=== PATIENT | male | born 1950 | race Caucasian/White ===

== ENCOUNTER 2020-05-23 13:22 | Emergency (ER) | payer OTHER ==
[~2020-05-23 13:22] MED LIST: Iopamidol-370 76% 500 ML 1 ML ONE
--- NOTE | 2020-05-23 14:39 | RAD ---
LUMBAR SPINE: 05/23/20 Three views. HISTORY: Low back pain. Lumbar vertebrae maintain height and alignment. Moderately severe degenerative changes. Loss of disc space at L4-5 and L5-S1. Osteophytes in the lumbar vertebrae with posterior facet hypertrophy. Moderately severe degenerative changes. POS: AGW
--- NOTE | 2020-05-23 14:54 | ULT ---
ULTRASOUND ABDOMINAL AORTA: HISTORY: Right lower quadrant pain, back pain, concern for aortic pathology. FINDINGS: The exam is nondiagnostic due to patient's body habitus. The aorta is not visualized. Further evaluation with contrast-enhanced CT scan is recommended. POS: OFF
[2020-05-23 15:29] LABS: Bacteria/HPF None Seen HPF (None Seen); Bilirubin Negative (Negative); Blood, Urine Negative (Negative); Clarity Clear (Clear); Glucose, Urine (Dipstick) 200 mg/dL (Negative); Ketone, Urine Negative (Negative); Leukocyte Negative Leu/uL (Negative); Mucous/LPF 1+ LPF (<2+); Nitrite Negative (Negative); Protein, Urine (Dipstick) 200 mg/dL (Neg-Trace); RBC/HPF 0-3 HPF (0-3); Specific Gravity, Urine 1.027 (1.002-1.036); Squamous Epithelial None Seen HPF (0-3); Urobilinogen Normal mg/dL (Less than 2); WBC/HPF 0-3 HPF (0-3); pH, Urine 5.5 (5.0-9.0)
[2020-05-23 15:36] LABS: #Eosinphils 0.4 thou/uL (0.0-0.7); #Monocytes 0.7 thou/uL (0.11-0.59); #Neutrophils 5.6 thou/uL (1.40-6.50); %Basophils 0.4 % (0.0-1.0); %Monocytes 8.3 % (0.0-10.0); %Neutrophils 63.3 % (42.0-75.0); Hemoglobin 12.9 g/dL (14.0-18.0); Mean Corpuscular HGB CONC 31.2 g/dL (32.0-36.0); Mean Corpuscular Hemoglobin 25.4 pg (27.0-31.0); Mean Corpuscular Volume 81.5 fL (78.0-98.0); Mean Platelet Volume 8.1 fL (7.4-10.4); Platelet Count 190 thou/uL (130-400); RBC Distribution Width 13.6 % (11.5-14.5); Red Blood Cell (RBC) Count 5.08 mill/uL (4.70-6.10); White Blood Cell (WBC) Count 8.9 thou/uL (4.8-10.8)
[2020-05-23 15:57] LABS: ALT (SGPT) 37 U/L (8-55); AST (SGOT) 27 U/L (5-34); Albumin 4.1 g/dL (3.4-4.8); Alkaline Phosphatase 73 U/L (40-110); Anion Gap 14 mmol/L (10-20); BUN (Urea Nitrogen) 28 mg/dL (8.4-25.7); Bilirubin, Total 0.6 mg/dL (0.2-1.2); Calc. Creatinine Clearance 0 mL/min (70-130); Calcium 9.3 mg/dL (7.8-10.44); Carbon Dioxide 26 mmol/L (23-31); Chloride 105 mmol/L (98-107); Estimated GFR-MDRD 56; Globulin 3.1 g/dL (2.4-3.5); Glucose 106 mg/dL (80-115); Potassium 4.1 mmol/L (3.5-5.1); Protein, Total 7.2 g/dL (5.8-8.1); Sodium 141 mmol/L (136-145)
--- NOTE | 2020-05-23 16:55 | CT ---
Exam: CTA chest with 3-D rendering: CTA abdomen with 3-D rendering: HISTORY: Evaluate for aortic etiology regards to back pain. COMPARISON: None TECHNIQUE: CT angiogram of the thoracic and abdominal aorta performed in the axial plane. Three-dimen sional reformatted images are submitted for interpretation. FINDINGS: Chest CT: Mediastinum: No mass, lymphadenopathy or hematoma Heart: Normal heart size. No significant pericardial fluid. Coronary arteries: Minimal atherosclerotic Trachea and central bronchi: Patent Pleural spaces: No pleural effusion. Right lung: Calcified granuloma in the right upper lobe. 0.4 cm nodule in the middle lobe. 0.5 cm martin id nodule in the right lower lobe. Dependent atelectatic changes and scarring the right lower lobe. Left lun.7 cm solid nodule in the lingula. 0.4 cm solid nodule in the left lower lobe. Dependent atelectasis and scarring in the left lower lobe. Pneumothorax: None Abdomen CT: Gallbladder: Cholelithiasis, without evidence of cholecystitis Portal vein: Patent Solid organs: Appropriate arterial phase enhancement of the liver, spleen, pancreas and adrenal gland s. Hypoattenuation of the liver compatible with hepatic steatosis. Kidneys: Symmetric enhancement. No obstructive uropathy. 1.3 cm left renal cortical cyst. Mesentery: No free air or free fluid. There are scattered nonspecific mesenteric lymph nodes. Represe ntative lymph node measures 0.8 x 1.0 cm the left mesentery. There is a retroperitoneal lymphadenopathy. Right common iliac lymph node measures 0.9 x 1.7 cm. Left common iliac lymph node me asures 1.7 x 1.6 cm. Left retroperitoneal soft tissue density measuring 3.8 x 1.7 cm is incompletely evaluated. There is a right lower quadrant mesenteric soft tissue density measuring 1.0 cm. Alimentary canal: Limited evaluation by the lack of oral contrast. No evidence of a bowel obstruction . Normal ileocecal junction. Osseous structures: No lytic or blastic lesions. There is diffuse bone demineralization. CT ANGIOGRAM: No CT evidence for aortic aneurysm or dissection. Scattered atherosclerosis throughout the aorta. Impression: 1. No CT evidence for aortic aneurysm or aortic dissection. 2. Lymphadenopathy in the mesentery as described above. 3. Solid lung parenchymal nodules as described above. Code lung nodule.
== END 2020-05-23 17:30 | disposition home or self-care (01) ==
LOC: ERS 13:22
DX: M54.5 Low back pain (principal); J44.9 Chronic obstructive pulmonary disease, unspecified; E11.9 Type 2 diabetes mellitus without complications; I10 Essential (primary) hypertension
CPT/HCPCS: 71275; 72100; 74174; 76775; 80053; 81003; 81015; 85025; Q9967

== ENCOUNTER 2022-01-09 13:09 | Inpatient (IN) | payer MEDICARE, OTHER ==
[2022-01-09 13:51] LABS: #Eosinphils 0.4 thou/uL (0.0-0.7); #Lymphocytes 1.9 thou/uL (1.20-3.40); #Monocytes 0.9 thou/uL (0.11-0.59); #Neutrophils 6.2 thou/uL (1.40-6.50); %Basophils 0.4 % (0.0-1.0); %Eosinophils 4.3 % (0.0-10.0); %Lymphocytes 19.8 % (21.0-51.0); %Monocytes 9.7 % (0.0-10.0); %Neutrophils 65.8 % (42.0-75.0); Hemoglobin 11.2 g/dL (14.0-18.0); Mean Corpuscular HGB CONC 29.9 g/dL (32.0-36.0); Mean Corpuscular Hemoglobin 22.3 pg (27.0-31.0); Mean Corpuscular Volume 74.6 fL (78.0-98.0); Mean Platelet Volume 9.8 fL (7.4-10.4); Platelet Count 234 thou/uL (130-400); RBC Distribution Width 15.9 % (11.5-14.5); Red Blood Cell (RBC) Count 5.05 mill/uL (4.70-6.10); White Blood Cell (WBC) Count 9.4 thou/uL (4.8-10.8)
[2022-01-09 14:02] LABS: Albumin 3.2 g/dL (3.4-4.8); Anion Gap 12 mmol/L (10-20); BUN (Urea Nitrogen) 21 mg/dL (8.4-25.7); Bilirubin, Total 0.5 mg/dL (0.2-1.2); Calc. Creatinine Clearance 0 mL/min (70-130); Calcium 8.9 mg/dL (7.8-10.44); Carbon Dioxide 26 mmol/L (23-31); Chloride 109 mmol/L (98-107); Estimated GFR 47; Glucose 165 mg/dL (83-110); Potassium 3.6 mmol/L (3.5-5.1); Protein, Total 6.4 g/dL (5.8-8.1); Sodium 143 mmol/L (136-145)
[2022-01-09 14:03] LABS: ALT (SGPT) 28 U/L (8-55); AST (SGOT) 20 U/L (5-34); Alkaline Phosphatase 72 U/L (40-110); Globulin 3.2 g/dL (2.4-3.5)
[2022-01-09] MEDS ORDERED: Pramipexole Di-HCl 1 MG TAB PO SCH (14:15)
[2022-01-09 14:23] LABS: Hypochromia SLIGHT = 6-15 cells (100X) (0-5/hpf); MDiff Complete? YES; Microcytosis SLIGHT = 6-15 cells (100X) (0-5/hpf); Ovalocytes SLIGHT = 2-5 cells (100X) (0-1/hpf); Platelet Morphology Comment Appears Adequate; Polychromasia SLIGHT = 2-3 cells (100X) (0-2/hpf)
[2022-01-09] MEDS ORDERED: Furosemide 40 MG/4 ML VIAL ONE (15:28)
[2022-01-09] MEDS ORDERED: Potassium Chloride 20 MEQ TAB ONE (15:28)
[2022-01-09] MEDS ORDERED: Aspirin Chewable 81 MG TAB ONE (15:28)
[2022-01-09 16:40] LABS: Troponin I 0.047 ng/mL (< 0.028)
[2022-01-09] MEDS ORDERED: Acetaminophen 325 MG TAB PO PRN (19:21)
[2022-01-09 20:10] VITALS: BMI 33.2
[2022-01-09] MEDS ORDERED: Dextrose 50% Abboject 50 ML SYRINGE SLOW IVP PRN (20:12)
[2022-01-09] MEDS ORDERED: Dextrose 5% in Water 1,000 ML IV PRN (20:12)
[2022-01-09] MEDS ORDERED: HumaLOG 300 UNITS/3 ML VIAL SC PRN ×2 (20:12)
[2022-01-09] MEDS: rOPINIRole HCl 1 MG TAB PO SCH (20:18)
[2022-01-09 20:22] LABS: Hemoglobin A1c 7.5 % (4.0-6.0)
[2022-01-09 20:32] LABS: Cardiac Risk 4.2 (Less than 4.5)
[2022-01-09 20:36] LABS: Troponin I 0.036 ng/mL (< 0.028)
[2022-01-09] MEDS ORDERED: Atorvastatin Calcium 10 MG TAB PO SCH (21:00)
[2022-01-09] MEDS ORDERED: Mirtazapine 30 MG TAB PO SCH (21:00)
[2022-01-09] MEDS ORDERED: Furosemide 20 MG/2 ML VIAL SLOW IVP SCH (22:00)
[2022-01-09] MEDS: Melatonin 3 MG TAB PO PRN (22:46)
[2022-01-10 05:04] LABS: Anion Gap 15 mmol/L (10-20); BUN (Urea Nitrogen) 20 mg/dL (8.4-25.7); Calc. Creatinine Clearance 87 mL/min (70-130); Calcium 9.3 mg/dL (7.8-10.44); Carbon Dioxide 27 mmol/L (23-31); Chloride 103 mmol/L (98-107); Estimated GFR 59; Glucose 163 mg/dL (83-110); Potassium 3.7 mmol/L (3.5-5.1); Sodium 141 mmol/L (136-145)
[2022-01-10] MEDS: Furosemide 40 MG/4 ML VIAL SLOW IVP SCH ×2 (05:32→15:13)
[2022-01-10] MEDS ORDERED: Losartan 25 MG TAB PO SCH (09:00)
[2022-01-10] MEDS: Aspirin Chewable 81 MG TAB PO SCH (10:21)
[2022-01-10] MEDS: rOPINIRole HCl 1 MG TAB PO SCH (10:21)
[2022-01-10] MEDS: Cholecalciferol 1,000 UNITS (25 MCG) TAB PO SCH (10:21)
[2022-01-10] MEDS: Enoxaparin Sodium 40 MG/0.4 ML SYRINGE SC SCH (10:22)
[2022-01-10] MEDS ORDERED: Spironolactone 25 MG TAB PO SCH (14:30)
[2022-01-10 14:49] LABS: Iron 34 ug/dL (65-175); Iron Binding Capacity, Total 364 mcg/dL (261-462)
[2022-01-10] MEDS ORDERED: Ferrous Sulfate 325 MG TAB PO SCH (15:45)
[2022-01-10] MEDS ORDERED: Carvedilol 3.125 MG TAB PO SCH (18:33)
[2022-01-10] MEDS: Melatonin 3 MG TAB PO PRN (20:39)
[2022-01-10] MEDS ORDERED: rOPINIRole HCl 0.5 MG TAB PO SCH (21:00)
[2022-01-10] MEDS ORDERED: Atorvastatin Calcium 40 MG TAB PO SCH (21:00)
[2022-01-10] MEDS ORDERED: Mirtazapine 15 MG TAB PO SCH (21:00)
[2022-01-11] MEDS ORDERED: Ketorolac Tromethamine 30 MG/ML VIAL IVP SCH (02:45)
[2022-01-11] MEDS ORDERED: rOPINIRole HCl 2 MG TAB PO SCH (04:00)
[2022-01-11 05:28] LABS: Anion Gap 16 mmol/L (10-20); BUN (Urea Nitrogen) 24 mg/dL (8.4-25.7); Calc. Creatinine Clearance 82 mL/min (70-130); Calcium 9.2 mg/dL (7.8-10.44); Carbon Dioxide 28 mmol/L (23-31); Chloride 99 mmol/L (98-107); Estimated GFR 57; Glucose 151 mg/dL (83-110); Potassium 3.9 mmol/L (3.5-5.1); Sodium 139 mmol/L (136-145)
[2022-01-11] MEDS: Furosemide 40 MG/4 ML VIAL SLOW IVP SCH (06:28)
[2022-01-11] MEDS ORDERED: Spironolactone 25 MG TAB PO SCH ×2 (08:00)
[2022-01-11] MEDS: Cholecalciferol 1,000 UNITS (25 MCG) TAB PO SCH (08:52)
[2022-01-11] MEDS: Enoxaparin Sodium 40 MG/0.4 ML SYRINGE SC SCH (08:53)
[2022-01-11] MEDS: Aspirin Chewable 81 MG TAB PO SCH (08:53)
[2022-01-11] MEDS ORDERED: Empagliflozin 10 MG TAB PO SCH (09:00)
[2022-01-11] MEDS ORDERED: Tamsulosin HCl 0.4 MG CAP PO SCH (09:00)
[2022-01-11 12:23] VITALS: TEMP 97.9
[2022-01-11] MEDS ORDERED: Losartan 25 MG TAB PO SCH (13:15)
[2022-01-11 13:38] VITALS: BP 152/88
[2022-01-12] MEDS ORDERED: Furosemide 40 MG TAB PO SCH (07:30)
[2022-01-12] MEDS ORDERED: Losartan 25 MG TAB PO SCH (09:00)
== END 2022-01-11 15:40 | disposition home or self-care (01) | DRG 291 ==
LOC: ERS 13:09 → 2SW 17:27 → OBSVTOIN 19:21
PROVIDERS: ADMIT Family Medicine; ATTEND Student in an Organized Health Care Education/Training Program
DX: I11.0 Hypertensive heart disease with heart failure (principal); Z66 Do not resuscitate; Z20.822 Contact with and (suspected) exposure to COVID-19; I50.33 Acute on chronic diastolic (congestive) heart failure; N17.9 Acute kidney failure, unspecified; I24.8 Other forms of acute ischemic heart disease; K21.9 Gastro-esophageal reflux disease without esophagitis; E11.9 Type 2 diabetes mellitus without complications; J44.9 Chronic obstructive pulmonary disease, unspecified; G25.81 Restless legs syndrome; Z96.653 Presence of artificial knee joint, bilateral; G47.33 Obstructive sleep apnea (adult) (pediatric); G47.00 Insomnia, unspecified; G89.29 Other chronic pain; M54.9 Dorsalgia, unspecified; D50.9 Iron deficiency anemia, unspecified; I34.0 Nonrheumatic mitral (valve) insufficiency; E66.01 Morbid (severe) obesity due to excess calories; Z68.32 Body mass index [BMI] 32.0-32.9, adult; Z98.890 Other specified postprocedural states; Z79.899 Other long term (current) drug therapy; Z79.84 Long term (current) use of oral hypoglycemic drugs; Z81.1 Family history of alcohol abuse and dependence
CPT/HCPCS: 36415; 36416; 71045; 80048; 80053; 80061; 82553; 82728; 83036; 83540; 83550; 83735; 83880; 84443; 84484; 85025; 93005; 93306; 94640; 96374; G0378; J1650; J1815; J1885; J1940; J7620; U0003; U0005

== ENCOUNTER 2022-04-05 06:31 | Inpatient (IN) | payer OTHER ==
[2022-04-05 07:41] LABS: ALT (SGPT) 32 U/L (8-55); AST (SGOT) 28 U/L (5-34); Albumin 3.5 g/dL (3.4-4.8); Alkaline Phosphatase 72 U/L (40-110); Anion Gap 11 mmol/L (10-20); BUN (Urea Nitrogen) 37 mg/dL (8.4-25.7); Bilirubin, Total 0.6 mg/dL (0.2-1.2); Calc. Creatinine Clearance 0 mL/min (70-130); Calcium 8.7 mg/dL (7.8-10.44); Carbon Dioxide 23 mmol/L (23-31); Chloride 110 mmol/L (98-107); Estimated GFR 47; Globulin 2.9 g/dL (2.4-3.5); Glucose 158 mg/dL (83-110); Potassium 4.2 mmol/L (3.5-5.1); Protein, Total 6.4 g/dL (5.8-8.1); Sodium 140 mmol/L (136-145)
[2022-04-05] MEDS ORDERED: Nitroglycerin 2% Ointment 1 INCH/1 GM Packet ONE (07:55)
[2022-04-05] MEDS ORDERED: Piperacillin/Tazobactam 3.375 GM VIAL ONE (07:56)
[2022-04-05 08:00] LABS: #Eosinphils 0.5 thou/uL (0.0-0.7); #Lymphocytes 1.8 thou/uL (1.20-3.40); #Monocytes 0.7 thou/uL (0.11-0.59); %Basophils 0.4 % (0.0-1.0); %Eosinophils 6.6 % (0.0-10.0); %Lymphocytes 21.8 % (21.0-51.0); %Monocytes 8.7 % (0.0-10.0); %Neutrophils 62.4 % (42.0-75.0); Hemoglobin 12.2 g/dL (14.0-18.0); Mean Corpuscular HGB CONC 29.8 g/dL (32.0-36.0); Mean Corpuscular Hemoglobin 23.7 pg (27.0-31.0); Mean Corpuscular Volume 79.6 fL (78.0-98.0); Mean Platelet Volume 9.3 fL (7.4-10.4); Platelet Count 188 thou/uL (130-400); RBC Distribution Width 16.2 % (11.5-14.5); Red Blood Cell (RBC) Count 5.16 mill/uL (4.70-6.10)
[2022-04-05 08:05] LABS: MDiff Complete? YES; Platelet Morphology Comment Appears Adequate; Polychromasia SLIGHT = 2-3 cells (100X) (0-2/hpf)
[2022-04-05 08:08] LABS: CKMB 15.2 ng/mL (0-6.6)
[2022-04-05] MEDS ORDERED: Enoxaparin Sodium 100 MG/ML SYRINGE ONE (09:08)
[2022-04-05 10:02] LABS: SARS-CoV-2 NAA Rapid Test Not Detected (NotDetected)
[2022-04-05] MEDS ORDERED: Acetaminophen 325 MG TAB PO PRN (10:16)
[2022-04-05] MEDS ORDERED: Iopamidol-370 76% 500 ML 1 ML ONE (10:37)
[2022-04-05] MEDS ORDERED: VANCOMYCIN 2 GRAM/500 ML BAG 2 GM in Premix Bag 1 BAG IVPB SCH (11:00)
[2022-04-05 11:19] LABS: Troponin I 0.029 ng/mL (< 0.028)
[2022-04-05 14:13] LABS: Troponin I 0.041 ng/mL (< 0.028)
[2022-04-05] MEDS ORDERED: Dextrose 5% in Water 1,000 ML IV PRN (14:21)
[2022-04-05] MEDS ORDERED: HumaLOG 300 UNITS/3 ML VIAL SC PRN ×2 (14:21)
[2022-04-05] MEDS ORDERED: Dextrose 50% Abboject 50 ML SYRINGE SLOW IVP PRN (14:21)
[2022-04-05 14:54] LABS: Magnesium 2.2 mg/dL (1.6-2.6)
[2022-04-05] MEDS: Cefepime 1 GM in Sodium Chloride 0.9% 100 ML IVPB SCH (17:44)
[2022-04-05] MEDS: Gabapentin 100 MG CAP PO SCH (20:07)
[2022-04-05] MEDS: Amlodipine 10 MG TAB PO SCH (20:08)
[2022-04-05] MEDS: Atorvastatin Calcium 40 MG TAB PO SCH (20:08)
[2022-04-05] MEDS: Pramipexole Di-HCl 1 MG TAB PO SCH (20:09)
[2022-04-05] MEDS ORDERED: Vancomycin 1 GM in Premix Bag 1 BAG IVPB SCH (21:00)
[2022-04-06] MEDS: Cefepime 1 GM in Sodium Chloride 0.9% 100 ML IVPB SCH (02:16)
[2022-04-06 05:02] LABS: #Eosinphils 0.5 thou/uL (0.0-0.7); #Lymphocytes 1.1 thou/uL (1.20-3.40); #Monocytes 0.7 thou/uL (0.11-0.59); %Basophils 0.4 % (0.0-1.0); %Eosinophils 6.9 % (0.0-10.0); %Lymphocytes 15.1 % (21.0-51.0); %Neutrophils 68.5 % (42.0-75.0); Hemoglobin 11.5 g/dL (14.0-18.0); Mean Corpuscular HGB CONC 30.1 g/dL (32.0-36.0); Mean Corpuscular Hemoglobin 23.9 pg (27.0-31.0); Mean Corpuscular Volume 79.4 fL (78.0-98.0); Mean Platelet Volume 9.9 fL (7.4-10.4); Platelet Count 173 thou/uL (130-400); Red Blood Cell (RBC) Count 4.82 mill/uL (4.70-6.10); White Blood Cell (WBC) Count 7.3 thou/uL (4.8-10.8)
[2022-04-06 05:13] LABS: Anion Gap 11 mmol/L (10-20); BUN (Urea Nitrogen) 25 mg/dL (8.4-25.7); Calc. Creatinine Clearance 96 mL/min (70-130); Calcium 8.9 mg/dL (7.8-10.44); Carbon Dioxide 23 mmol/L (23-31); Chloride 110 mmol/L (98-107); Estimated GFR 64; Glucose 121 mg/dL (83-110); Sodium 140 mmol/L (136-145)
[2022-04-06] MEDS: Clopidogrel Bisulfate 75 MG TAB PO SCH (10:15)
[2022-04-06] MEDS: Aspirin Chewable 81 MG TAB PO SCH (10:15)
[2022-04-06] MEDS: Pramipexole Di-HCl 1 MG TAB PO SCH ×3 (10:16→20:26)
[2022-04-06] MEDS ORDERED: Furosemide 100 MG/10 ML VIAL SLOW IVP SCH (10:30)
[2022-04-06] MEDS ORDERED: Cephalexin 250 MG CAP PO SCH (12:45)
[2022-04-06] MEDS ORDERED: VANCOMYCIN 2 GRAM/500 ML BAG 2 GM in Premix Bag 1 BAG IVPB SCH (13:00)
[2022-04-06] MEDS: Furosemide 40 MG/4 ML VIAL SLOW IVP SCH (14:26)
[2022-04-06] MEDS: Cephalexin 250 MG CAP PO SCH ×2 (18:31→23:31)
[2022-04-06 18:44] VITALS: BMI 32.9
[2022-04-06] MEDS: Gabapentin 100 MG CAP PO SCH (20:26)
[2022-04-06] MEDS: glipiZIDE 10 MG TAB PO SCH (20:26)
[2022-04-06] MEDS: Atorvastatin Calcium 40 MG TAB PO SCH (20:26)
[2022-04-06] MEDS: Amlodipine 10 MG TAB PO SCH (20:26)
[2022-04-07 05:48] LABS: #Eosinphils 0.5 thou/uL (0.0-0.7); #Lymphocytes 1.4 thou/uL (1.20-3.40); #Monocytes 0.7 thou/uL (0.11-0.59); #Neutrophils 4.7 thou/uL (1.40-6.50); %Basophils 0.4 % (0.0-1.0); %Eosinophils 6.6 % (0.0-10.0); %Lymphocytes 19.2 % (21.0-51.0); %Monocytes 9.8 % (0.0-10.0); Hemoglobin 12.6 g/dL (14.0-18.0); Mean Corpuscular HGB CONC 29.5 g/dL (32.0-36.0); Mean Corpuscular Hemoglobin 23.4 pg (27.0-31.0); Mean Corpuscular Volume 79.4 fL (78.0-98.0); Mean Platelet Volume 9.6 fL (7.4-10.4); Platelet Count 194 thou/uL (130-400); RBC Distribution Width 16.1 % (11.5-14.5); White Blood Cell (WBC) Count 7.4 thou/uL (4.8-10.8)
[2022-04-07] MEDS: Cephalexin 250 MG CAP PO SCH ×4 (06:28→23:12)
[2022-04-07] MEDS: Furosemide 40 MG/4 ML VIAL SLOW IVP SCH ×2 (06:29→14:34)
[2022-04-07 07:37] LABS: Anion Gap 12 mmol/L (10-20); BUN (Urea Nitrogen) 20 mg/dL (8.4-25.7); Calc. Creatinine Clearance 94 mL/min (70-130); Calcium 9.6 mg/dL (7.8-10.44); Carbon Dioxide 26 mmol/L (23-31); Chloride 104 mmol/L (98-107); Estimated GFR 67; Glucose 76 mg/dL (83-110); Potassium 3.6 mmol/L (3.5-5.1); Sodium 138 mmol/L (136-145)
[2022-04-07] MEDS ORDERED: Clopidogrel Bisulfate 75 MG TAB PO SCH (09:00)
[2022-04-07] MEDS: Alogliptin 6.25 MG TAB PO SCH (09:49)
[2022-04-07] MEDS: glipiZIDE 10 MG TAB PO SCH ×2 (09:50→20:02)
[2022-04-07] MEDS: Losartan 25 MG TAB PO SCH (09:51)
[2022-04-07] MEDS: Empagliflozin 25 MG TAB PO SCH (09:51)
[2022-04-07] MEDS: Clopidogrel Bisulfate 75 MG TAB PO SCH (09:51)
[2022-04-07] MEDS: Aspirin Chewable 81 MG TAB PO SCH (09:51)
[2022-04-07] MEDS: Pramipexole Di-HCl 1 MG TAB PO SCH ×3 (09:52→20:02)
[2022-04-07] MEDS: Amlodipine 10 MG TAB PO SCH (20:02)
[2022-04-07] MEDS: Gabapentin 100 MG CAP PO SCH (20:02)
[2022-04-07] MEDS: Atorvastatin Calcium 40 MG TAB PO SCH (20:02)
[2022-04-08 05:12] LABS: #Eosinphils 0.4 thou/uL (0.0-0.7); #Lymphocytes 1.6 thou/uL (1.20-3.40); #Monocytes 0.8 thou/uL (0.11-0.59); %Basophils 0.5 % (0.0-1.0); %Eosinophils 5.7 % (0.0-10.0); %Lymphocytes 20.5 % (21.0-51.0); %Monocytes 10.3 % (0.0-10.0); Hemoglobin 13.1 g/dL (14.0-18.0); Mean Corpuscular Hemoglobin 23.7 pg (27.0-31.0); Mean Platelet Volume 9.7 fL (7.4-10.4); Platelet Count 203 thou/uL (130-400); RBC Distribution Width 16.1 % (11.5-14.5); Red Blood Cell (RBC) Count 5.54 mill/uL (4.70-6.10); White Blood Cell (WBC) Count 7.9 thou/uL (4.8-10.8)
[2022-04-08 05:18] LABS: Anion Gap 12 mmol/L (10-20); BUN (Urea Nitrogen) 24 mg/dL (8.4-25.7); Calc. Creatinine Clearance 80 mL/min (70-130); Calcium 9.6 mg/dL (7.8-10.44); Carbon Dioxide 27 mmol/L (23-31); Chloride 104 mmol/L (98-107); Estimated GFR 55; Glucose 171 mg/dL (83-110); Potassium 3.4 mmol/L (3.5-5.1); Sodium 140 mmol/L (136-145)
[2022-04-08] MEDS: Cephalexin 250 MG CAP PO SCH ×2 (06:01→12:41)
[2022-04-08] MEDS: Furosemide 40 MG/4 ML VIAL SLOW IVP SCH (06:01)
[2022-04-08] MEDS: Alogliptin 6.25 MG TAB PO SCH (10:31)
[2022-04-08] MEDS: Aspirin Chewable 81 MG TAB PO SCH (10:32)
[2022-04-08] MEDS: Losartan 25 MG TAB PO SCH (10:33)
[2022-04-08] MEDS: glipiZIDE 10 MG TAB PO SCH (10:33)
[2022-04-08] MEDS: Empagliflozin 25 MG TAB PO SCH (10:33)
[2022-04-08] MEDS: Clopidogrel Bisulfate 75 MG TAB PO SCH (10:33)
[2022-04-08] MEDS: Pramipexole Di-HCl 1 MG TAB PO SCH (10:34)
[2022-04-08 11:28] VITALS: BP 130/70; TEMP 98.1
[2022-04-09] MEDS ORDERED: Furosemide 40 MG TAB PO SCH (07:30)
[2022-04-09] MEDS ORDERED: Tamsulosin HCl 0.4 MG CAP PO SCH (09:00)
== END 2022-04-08 13:20 | disposition home or self-care (01) | DRG 291 ==
LOC: SUATTDRO 06:31 → ERS 06:31 → ERHOLD 10:17 → 2SW 16:40 → OBSVTOIN 04-06 16:52
PROVIDERS: ADMIT Hospitalist; ATTEND Internal Medicine
DX: I11.0 Hypertensive heart disease with heart failure (principal); I50.33 Acute on chronic diastolic (congestive) heart failure; N17.9 Acute kidney failure, unspecified; L03.116 Cellulitis of left lower limb; Z20.822 Contact with and (suspected) exposure to COVID-19; E11.9 Type 2 diabetes mellitus without complications; J44.9 Chronic obstructive pulmonary disease, unspecified; E78.00 Pure hypercholesterolemia, unspecified; M25.462 Effusion, left knee; E66.9 Obesity, unspecified; I25.118 Atherosclerotic heart disease of native coronary artery with other forms of angina pectoris; Z95.5 Presence of coronary angioplasty implant and graft; Z68.31 Body mass index [BMI] 31.0-31.9, adult; Z79.899 Other long term (current) drug therapy; Z79.84 Long term (current) use of oral hypoglycemic drugs
CPT/HCPCS: 36415; 36416; 71045; 71275; 72170; 80048; 80053; 82553; 83735; 83880; 84443; 84484; 85025; 85379; 93005; 93010; 94760; 96372; 96374; 96375; 96376; G0378; J0692; J1650; J1940; J2543; J3370; J3490; J7030; Q9967; U0002

== ENCOUNTER 2022-05-18 06:22 | Emergency (ER) | payer MEDICARE, OTHER ==
[2022-05-18 07:26] LABS: #Eosinphils 0.4 thou/uL (0.0-0.7); #Lymphocytes 2.3 thou/uL (1.20-3.40); #Neutrophils 5.5 thou/uL (1.40-6.50); %Basophils 0.2 % (0.0-1.0); %Eosinophils 4.8 % (0.0-10.0); %Lymphocytes 24.6 % (21.0-51.0); %Monocytes 10.5 % (0.0-10.0); Hemoglobin 12.5 g/dL (14.0-18.0); Mean Corpuscular HGB CONC 30.3 g/dL (32.0-36.0); Mean Corpuscular Hemoglobin 23.7 pg (27.0-31.0); Mean Corpuscular Volume 78.1 fl (78.0-98.0); Mean Platelet Volume 9.4 fL (7.4-10.4); Platelet Count 217 10x3/uL (130-400); RBC Distribution Width 14.9 % (11.5-14.5); Red Blood Cell (RBC) Count 5.26 mill/uL (4.70-6.10); White Blood Cell (WBC) Count 9.1 10x3/uL (4.8-10.8)
[2022-05-18 07:45] LABS: ALT (SGPT) 30 U/L (8-55); AST (SGOT) 20 U/L (5-34); Albumin 3.7 g/dL (3.4-4.8); Alkaline Phosphatase 81 U/L (40-110); Anion Gap 12 mmol/L (10-20); BUN (Urea Nitrogen) 29 mg/dL (8.4-25.7); Bilirubin, Total 0.8 mg/dL (0.2-1.2); Calc. Creatinine Clearance 0 mL/min (70-130); Calcium 9.2 mg/dL (7.8-10.44); Carbon Dioxide 24 mmol/L (23-31); Chloride 108 mmol/L (98-107); Estimated GFR 61; Globulin 2.6 g/dL (2.4-3.5); Glucose 130 mg/dL (83-110); Potassium 4.1 mmol/L (3.5-5.1); Protein, Total 6.3 g/dL (5.8-8.1); Sodium 140 mmol/L (136-145)
[2022-05-18 08:08] LABS: CKMB 5.9 ng/mL (0-6.6)
[2022-05-18] MEDS ORDERED: Nitroglycerin 2% Ointment 1 INCH/1 GM Packet ONE (08:53)
[2022-05-18] MEDS ORDERED: Aspirin Chewable 81 MG TAB ONE (11:51)
== END 2022-05-18 14:37 ==
LOC: ERS 06:22
DX: R53.1 Weakness (principal); I10 Essential (primary) hypertension; K21.9 Gastro-esophageal reflux disease without esophagitis; E11.9 Type 2 diabetes mellitus without complications; Z79.899 Other long term (current) drug therapy
CPT/HCPCS: 36415; 70450; 80053; 82553; 84484; 85025; 93005; 96374

== ENCOUNTER 2022-08-08 20:51 | Inpatient (IN) | payer MEDICARE, OTHER ==
[2022-08-08 21:59] LABS: #Eosinphils 0.1 thou/uL (0.0-0.7); #Lymphocytes 0.7 thou/uL (1.20-3.40); #Monocytes 0.9 thou/uL (0.11-0.59); #Neutrophils 6.9 thou/uL (1.40-6.50); %Basophils 0.4 % (0.0-1.0); %Eosinophils 1.3 % (0.0-10.0); %Lymphocytes 8.4 % (21.0-51.0); %Monocytes 10.7 % (0.0-10.0); %Neutrophils 79.3 % (42.0-75.0); Hemoglobin 11.4 g/dL (14.0-18.0); Mean Corpuscular Hemoglobin 23.8 pg (27.0-31.0); Mean Corpuscular Volume 76.9 fl (78.0-98.0); Mean Platelet Volume 9.9 fL (7.4-10.4); Platelet Count 152 10x3/uL (130-400); RBC Distribution Width 15.2 % (11.5-14.5); White Blood Cell (WBC) Count 8.7 10x3/uL (4.8-10.8)
[2022-08-08] MEDS ORDERED: Ipratropium/Albuterol 3 ML NEB ONE (22:02)
[2022-08-08] MEDS ORDERED: Ketorolac Tromethamine 30 MG/ML VIAL ONE (22:02)
[2022-08-08 22:10] LABS: INR-International Normal Ratio 1.2; PTT 35.5 sec (22.9-36.1); Prothrombin Time 16.1 sec (12.0-14.7)
[2022-08-08 22:11] LABS: D-Dimer Test 2.7 *mcg/mL (0.27-0.43)
[2022-08-08 22:19] LABS: Actual Bicarbonate (HCO3v) 24 mEq/L (22-28); Base Excess -0.2 mEq/L (-2.0 to +3.0); Calcium, Ionized (venous) 1.11 mmol/L (1.16-1.32); Chloride (VBG) 104 mmol/L (98-106); Hemoglobin (Hb) 11.5 g/dL (12.6-17.4); Potassium (VBG) 3.18 mmol/L (3.70-5.30); Sodium 137.6 mmol/L (133-146); pH (venous) 7.44 (7.32-7.43)
[2022-08-08 22:27] LABS: ALT (SGPT) 23 U/L (8-55); AST (SGOT) 26 U/L (5-34); Albumin 3.7 g/dL (3.4-4.8); Alkaline Phosphatase 68 U/L (40-110); Anion Gap 11 mmol/L (10-20); BUN (Urea Nitrogen) 31 mg/dL (8.4-25.7); Bilirubin, Total 1.3 mg/dL (0.2-1.2); Calc. Creatinine Clearance 0 mL/min (70-130); Calcium 8.8 mg/dL (7.8-10.44); Carbon Dioxide 23 mmol/L (23-31); Chloride 107 mmol/L (98-107); Estimated GFR 40; Globulin 2.9 g/dL (2.4-3.5); Potassium 3.2 mmol/L (3.5-5.1); Protein, Total 6.6 g/dL (5.8-8.1); Sodium 138 mmol/L (136-145)
[2022-08-08 22:32] LABS: Glucose 38 mg/dL (83-110)
[2022-08-08] MEDS ORDERED: Magnesium 2 GM/50 ML BAG (IN WATER) ONE (22:44)
[2022-08-08] MEDS ORDERED: Acetaminophen 325 MG TAB ONE (22:44)
[2022-08-08] MEDS ORDERED: cefTRIAXone\\ROCEPHIN 2 GM VIAL ONE (22:44)
[2022-08-08] MEDS ORDERED: methylPREDNISolone Sod Succ/PF 125 MG/2 ML VIAL ONE (22:44)
[2022-08-08 22:47] LABS: CKMB 2.2 ng/mL (0-6.6)
[2022-08-08 23:02] LABS: SARS-CoV-2 NAA Rapid Test DETECTED (NotDetected)
[2022-08-08] MEDS ORDERED: D5 1/2 NS w/20 mEq KCL 1,000 ML IV SCH (23:30)
[2022-08-08] MEDS ORDERED: Acetaminophen 325 MG TAB PO PRN (23:30)
[2022-08-08] MEDS ORDERED: Ondansetron PF 4 MG/2 ML Vial IVP PRN (23:30)
[2022-08-08] MEDS ORDERED: Ondansetron ODT 4 MG TAB SL PRN (23:30)
[2022-08-09] MEDS ORDERED: Aspirin 325 MG TAB ONE (00:15)
[2022-08-09] MEDS ORDERED: Aspirin Chewable 81 MG TAB ONE (00:16)
[2022-08-09 02:12] VITALS: BMI 34.4
[2022-08-09] MEDS ORDERED: Dextrose 5% in Water 1,000 ML IV PRN (02:32)
[2022-08-09] MEDS ORDERED: Dextrose 50% Abboject 50 ML SYRINGE SLOW IVP PRN (02:32)
[2022-08-09] MEDS ORDERED: HumaLOG 300 UNITS/3 ML VIAL SC PRN ×2 (02:32)
[2022-08-09 02:33] LABS: Troponin I 0.049 ng/mL (< 0.028)
[2022-08-09] MEDS ORDERED: Albuterol 200 PUFF (6.7GM INHALER) INH PRN (02:37)
[2022-08-09] MEDS ORDERED: Benzonatate 100 MG CAP PO PRN (02:37)
[2022-08-09] MEDS ORDERED: Acetaminophen 325 MG TAB PO PRN (02:37)
[2022-08-09] MEDS ORDERED: Acetaminophen 650 MG Suppository PR PRN (02:37)
[2022-08-09 04:06] LABS: #Basophils 0.1 thou/uL (0.0-0.2); #Lymphocytes 0.5 thou/uL (1.20-3.40); #Monocytes 0.2 thou/uL (0.11-0.59); %Basophils 0.8 % (0.0-1.0); %Eosinophils 0.2 % (0.0-10.0); %Lymphocytes 6.9 % (21.0-51.0); %Monocytes 2.8 % (0.0-10.0); %Neutrophils 89.3 % (42.0-75.0); Hemoglobin 10.4 g/dL (14.0-18.0); Mean Corpuscular HGB CONC 30.5 g/dL (32.0-36.0); Mean Corpuscular Hemoglobin 23.6 pg (27.0-31.0); Mean Corpuscular Volume 77.4 fl (78.0-98.0); Platelet Count 150 10x3/uL (130-400); RBC Distribution Width 15.3 % (11.5-14.5); Red Blood Cell (RBC) Count 4.42 mill/uL (4.70-6.10); White Blood Cell (WBC) Count 7.8 10x3/uL (4.8-10.8)
[2022-08-09 04:31] LABS: ALT (SGPT) 23 U/L (8-55); AST (SGOT) 26 U/L (5-34)
[2022-08-09 04:31] LABS: Anion Gap 13 mmol/L (10-20); BUN (Urea Nitrogen) 34 mg/dL (8.4-25.7); Calc. Creatinine Clearance 56 mL/min (70-130); Calcium 8.5 mg/dL (7.8-10.44); Carbon Dioxide 22 mmol/L (23-31); Chloride 105 mmol/L (98-107); Estimated GFR 36; Glucose 118 mg/dL (83-110); Potassium 3.3 mmol/L (3.5-5.1); Sodium 137 mmol/L (136-145)
[2022-08-09 04:34] LABS: Troponin I 0.051 ng/mL (< 0.028)
[2022-08-09] MEDS ORDERED: methylPREDNISolone Sod Succ/PF 125 MG/2 ML VIAL IVP SCH (06:00)
[2022-08-09] MEDS ORDERED: Electrolyte Replacement Protocol 1 EACH FS SCH (07:00)
[2022-08-09] MEDS ORDERED: Sodium Chloride 0.9% 1,000 ML IV SCH (07:00)
[2022-08-09 07:36] LABS: Magnesium 2.7 mg/dL (1.6-2.6)
[2022-08-09] MEDS ORDERED: Potassium Chloride 20 MEQ TAB PO SCH (08:00)
[2022-08-09] MEDS ORDERED: Dexamethasone 4 MG TAB PO SCH (08:00)
[2022-08-09] MEDS ORDERED: Pantoprazole 40 MG VIAL IVP SCH (09:00)
[2022-08-09] MEDS ORDERED: Aspirin 325 MG TAB PO SCH (09:00)
[2022-08-09] MEDS ORDERED: methylPREDNISolone Sod Succ 40 MG VIAL IVP SCH (09:00)
[2022-08-09] MEDS ORDERED: Ascorbic Acid 500 mg Chewable Tablet PO SCH (09:00)
[2022-08-09] MEDS ORDERED: REMDESIVIR 200 MG in Sodium Chloride 0.9% 250 ML 210 ML IV SCH (09:00)
[2022-08-09] MEDS: Ascorbic Acid 500 mg Chewable Tablet PO SCH ×2 (09:49→20:35)
[2022-08-09] MEDS: Zinc Sulfate 220 MG CAP PO SCH (09:50)
[2022-08-09] MEDS: Famotidine 20 MG TAB PO SCH (09:56)
[2022-08-09] MEDS: Cholecalciferol (Vitamin D3) 400 UNITS TAB PO SCH (09:56)
[2022-08-09 10:35] LABS: Troponin I 0.032 ng/mL (< 0.028)
[2022-08-09] MEDS: Albuterol 200 PUFF (6.7GM INHALER) INH SCH ×3 (10:35→18:27)
[2022-08-09] MEDS: Mometasone 100 MCG/PUFF (1 INHALER) INH SCH ×2 (10:35→18:26)
[2022-08-09] MEDS: Azithromycin 500 MG in Sodium Chloride 0.9% 250 ML 250 ML IVPB SCH (10:35)
[2022-08-09] MEDS ORDERED: Iopamidol-370 76% 500 ML 1 ML ONE (13:35)
[2022-08-09] MEDS: Melatonin 3 MG TAB PO SCH (23:09)
[2022-08-10] MEDS: Albuterol 200 PUFF (6.7GM INHALER) INH SCH ×4 (01:08→18:28)
[2022-08-10 04:39] LABS: ALT (SGPT) 25 U/L (8-55); AST (SGOT) 23 U/L (5-34)
[2022-08-10 04:41] VITALS: BP 146/84
[2022-08-10] MEDS: Mometasone 100 MCG/PUFF (1 INHALER) INH SCH ×2 (05:20→18:28)
[2022-08-10] MEDS ORDERED: REMDESIVIR 100 MG in Sodium Chloride 0.9% 250 ML 230 ML IV SCH (09:00)
[2022-08-10] MEDS: Ascorbic Acid 500 mg Chewable Tablet PO SCH ×2 (09:19→20:43)
[2022-08-10] MEDS: Azithromycin 500 MG in Sodium Chloride 0.9% 250 ML 250 ML IVPB SCH (09:19)
[2022-08-10] MEDS: Cholecalciferol (Vitamin D3) 400 UNITS TAB PO SCH (09:19)
[2022-08-10] MEDS: Famotidine 20 MG TAB PO SCH (09:19)
[2022-08-10] MEDS: Zinc Sulfate 220 MG CAP PO SCH (09:19)
[2022-08-10 16:28] LABS: #Eosinphils 0.2 thou/uL (0.0-0.7); #Lymphocytes 1.7 thou/uL (1.20-3.40); #Monocytes 0.7 thou/uL (0.11-0.59); #Neutrophils 5.3 thou/uL (1.40-6.50); %Basophils 0.4 % (0.0-1.0); %Eosinophils 2.1 % (0.0-10.0); %Monocytes 9.1 % (0.0-10.0); %Neutrophils 66.5 % (42.0-75.0); Hemoglobin 10.4 g/dL (14.0-18.0); Mean Corpuscular HGB CONC 30.9 g/dL (32.0-36.0); Mean Corpuscular Hemoglobin 24.3 pg (27.0-31.0); Mean Corpuscular Volume 78.6 fl (78.0-98.0); Mean Platelet Volume 9.2 fL (7.4-10.4); Platelet Count 157 10x3/uL (130-400); RBC Distribution Width 15.3 % (11.5-14.5); Red Blood Cell (RBC) Count 4.28 mill/uL (4.70-6.10); White Blood Cell (WBC) Count 7.9 10x3/uL (4.8-10.8)
[2022-08-10 16:50] LABS: Anion Gap 11 mmol/L (10-20); BUN (Urea Nitrogen) 35 mg/dL (8.4-25.7); Calc. Creatinine Clearance 89 mL/min (70-130); Calcium 8.2 mg/dL (7.8-10.44); Carbon Dioxide 22 mmol/L (23-31); Chloride 111 mmol/L (98-107); Estimated GFR 63; Glucose 135 mg/dL (83-110); Potassium 3.9 mmol/L (3.5-5.1); Sodium 140 mmol/L (136-145)
[2022-08-10] MEDS: Melatonin 3 MG TAB PO SCH (20:43)
[2022-08-11] MEDS: Albuterol 200 PUFF (6.7GM INHALER) INH SCH ×2 (02:25→06:14)
[2022-08-11 04:33] LABS: ALT (SGPT) 34 U/L (8-55); AST (SGOT) 32 U/L (5-34)
[2022-08-11] MEDS: Mometasone 100 MCG/PUFF (1 INHALER) INH SCH (06:13)
[2022-08-11 07:52] VITALS: TEMP 98.8
[2022-08-11] MEDS ORDERED: predniSONE 20 MG TAB PO SCH (08:00)
[2022-08-11] MEDS: Famotidine 20 MG TAB PO SCH (09:10)
[2022-08-11] MEDS: Zinc Sulfate 220 MG CAP PO SCH (09:10)
[2022-08-11] MEDS: Ascorbic Acid 500 mg Chewable Tablet PO SCH (09:10)
[2022-08-11] MEDS: Cholecalciferol (Vitamin D3) 400 UNITS TAB PO SCH (09:10)
[2022-08-11] MEDS: Azithromycin 500 MG in Sodium Chloride 0.9% 250 ML 250 ML IVPB SCH (09:13)
[2022-08-12] MEDS ORDERED: FLU VACC QS2022-23(65YR UP)/PF 240 MCG/0.7 ML SYRINGE IM ONE (09:00)
== END 2022-08-11 11:45 | disposition home or self-care (01) | DRG 177 ==
LOC: ERS 20:51 → IMCU/EMU 23:06
PROVIDERS: ADMIT Internal Medicine; ATTEND Internal Medicine
PROC: 5A0935A Assistance with Respiratory Ventilation, Less than 24 Consecutive Hours, High Flow/Velocity Cannula (ICD-10-PCS; principal; 2022-08-08)
PROC: 8E0ZXY6 Isolation (ICD-10-PCS; 2022-08-08)
DX: U07.1 COVID-19 (principal); I21.A1 Myocardial infarction type 2; J96.01 Acute respiratory failure with hypoxia; I50.32 Chronic diastolic (congestive) heart failure; J44.1 Chronic obstructive pulmonary disease with (acute) exacerbation; N17.9 Acute kidney failure, unspecified; I11.0 Hypertensive heart disease with heart failure; E11.9 Type 2 diabetes mellitus without complications; E78.5 Hyperlipidemia, unspecified; E87.6 Hypokalemia; G47.33 Obstructive sleep apnea (adult) (pediatric); R77.8 Other specified abnormalities of plasma proteins; N18.2 Chronic kidney disease, stage 2 (mild); J44.9 Chronic obstructive pulmonary disease, unspecified; I69.322 Dysarthria following cerebral infarction; Z91.018 Allergy to other foods; Z79.899 Other long term (current) drug therapy; Z79.02 Long term (current) use of antithrombotics/antiplatelets; Z79.84 Long term (current) use of oral hypoglycemic drugs; Z98.890 Other specified postprocedural states
CPT/HCPCS: 36415; 36416; 71045; 71275; 80048; 80053; 82553; 82805; 83605; 83735; 83880; 84450; 84460; 84484; 85025; 85379; 85610; 85730; 87040; 93005; 93010; 93306; 96374; 96375; J0456; J0696; J1650; J1815; J1885; J2930; J3475; J3480; J7050; J7512; J7620; Q9967

== ENCOUNTER 2023-01-16 14:26 | Observation (INO) | payer OTHER, MEDICARE ==
[2023-01-16] MEDS ORDERED: Aspirin Chewable 81 MG TAB ONE (15:26)
[2023-01-16] MEDS ORDERED: Ketorolac Tromethamine 30 MG/ML VIAL ONE (15:26)
[2023-01-16 15:37] LABS: #Eosinphils 0.5 thou/uL (0.0-0.7); #Monocytes 0.8 thou/uL (0.11-0.59); #Neutrophils 5.9 thou/uL (1.40-6.50); %Basophils 0.3 % (0.0-1.0); %Eosinophils 5.6 % (0.0-10.0); %Lymphocytes 19.8 % (21.0-51.0); %Monocytes 8.5 % (0.0-10.0); %Neutrophils 65.5 % (42.0-75.0); Hemoglobin 10.9 g/dL (14.0-18.0); Mean Corpuscular HGB CONC 29.6 g/dL (32.0-36.0); Mean Corpuscular Volume 74.2 fl (78.0-98.0); Mean Platelet Volume 9.8 fL (7.4-10.4); Platelet Count 248 10x3/uL (130-400); RBC Distribution Width 17.2 % (11.5-14.5); Red Blood Cell (RBC) Count 4.96 mill/uL (4.70-6.10)
[2023-01-16 15:43] LABS: ALT (SGPT) 25 U/L (8-55); AST (SGOT) 27 U/L (5-34); Albumin 3.7 g/dL (3.4-4.8); Alkaline Phosphatase 68 U/L (40-110); Anion Gap 9 mmol/L (10-20); BUN (Urea Nitrogen) 25 mg/dL (8.4-25.7); Bilirubin, Total 0.4 mg/dL (0.2-1.2); Calc. Creatinine Clearance 0 mL/min (70-130); Calcium 8.8 mg/dL (7.8-10.44); Carbon Dioxide 24 mmol/L (23-31); Chloride 111 mmol/L (98-107); Estimated GFR 51; Glucose 106 mg/dL (83-110); Lipase 55 U/L (8-78); Potassium 3.8 mmol/L (3.5-5.1); Protein, Total 6.7 g/dL (5.8-8.1); Sodium 140 mmol/L (136-145)
[2023-01-16 16:05] LABS: CellaVision Operator ID LAB.KB; Hypochromia SLIGHT = 6-15 cells HPF (0-5); Microcytosis SLIGHT = 6-15 cells HPF (0-5); Ovalocytes SLIGHT = 2-5 cells HPF (0-1); Platelet Adequacy Comment Platelets Normal; Polychromasia SLIGHT = 2-3 cells HPF (0-2); Tear Drops SLIGHT = 2-5 cells HPF (0-1)
[2023-01-16 16:19] LABS: CKMB 11.6 ng/mL (0-6.6)
[2023-01-16] MEDS ORDERED: Albuterol 200 PUFF (6.7GM INHALER) INH PRN (17:29)
[2023-01-16] MEDS ORDERED: HumaLOG 300 UNITS/3 ML VIAL SC PRN (17:34)
[2023-01-16] MEDS ORDERED: Nitroglycerin 0.4 MG TAB (25 Tab Bottle) SL PRN (17:34)
[2023-01-16] MEDS ORDERED: Dextrose 50% Abboject 50 ML SYRINGE SLOW IVP PRN (17:34)
[2023-01-16] MEDS ORDERED: Glucagon 1 MG/ML KIT IM PRN (17:34)
[2023-01-16] MEDS ORDERED: Dextrose 5% in Water 1,000 ML IV PRN (17:34)
[2023-01-16] MEDS ORDERED: Senokot S 8.6-50 MG TAB PO PRN (17:34)
[2023-01-16] MEDS ORDERED: HYDROcodone/Acetaminophen 5/325 mg Tablet PO PRN (17:34)
[2023-01-16] MEDS ORDERED: Ondansetron PF 4 MG/2 ML Vial IVP PRN (17:34)
[2023-01-16] MEDS: Mometasone 200 MCG/PUFF (1 INHALER) INH SCH (19:16)
[2023-01-16 19:29] VITALS: BMI 33.3
[2023-01-16] MEDS: Pramipexole Di-HCl 1 MG TAB PO SCH (19:53)
[2023-01-16] MEDS: Ferrous Sulfate 325 MG TAB PO SCH (19:53)
[2023-01-16] MEDS: Carvedilol 25 MG TAB PO SCH (19:53)
[2023-01-16 20:47] LABS: Troponin I Less than 0.010 ng/mL (< 0.028)
[2023-01-16] MEDS ORDERED: Atorvastatin Calcium 40 MG TAB PO SCH (21:00)
[2023-01-16] MEDS ORDERED: Gabapentin 100 MG CAP PO SCH (21:00)
[2023-01-17 00:35] LABS: Troponin I 0.015 ng/mL (< 0.028)
[2023-01-17 04:46] LABS: #Eosinphils 0.5 thou/uL (0.0-0.7); #Monocytes 0.7 thou/uL (0.11-0.59); #Neutrophils 5.3 thou/uL (1.40-6.50); %Basophils 0.4 % (0.0-1.0); %Eosinophils 5.6 % (0.0-10.0); %Lymphocytes 21.1 % (21.0-51.0); %Monocytes 8.3 % (0.0-10.0); %Neutrophils 64.2 % (42.0-75.0); Hemoglobin 10.5 g/dL (14.0-18.0); Mean Corpuscular HGB CONC 29.5 g/dL (32.0-36.0); Mean Corpuscular Hemoglobin 22.3 pg (27.0-31.0); Mean Corpuscular Volume 75.6 fl (78.0-98.0); Mean Platelet Volume 10.4 fL (7.4-10.4); Platelet Count 240 10x3/uL (130-400); RBC Distribution Width 17.2 % (11.5-14.5); Red Blood Cell (RBC) Count 4.71 mill/uL (4.70-6.10); White Blood Cell (WBC) Count 8.2 10x3/uL (4.8-10.8)
[2023-01-17 05:03] LABS: Hemoglobin A1c 6.2 % (4.0-6.0)
[2023-01-17 05:14] LABS: Anion Gap 13 mmol/L (10-20); BUN (Urea Nitrogen) 27 mg/dL (8.4-25.7); Calc. Creatinine Clearance 85 mL/min (70-130); Calcium 8.6 mg/dL (7.8-10.44); Carbon Dioxide 20 mmol/L (23-31); Cardiac Risk 4.7 (Less than 4.5); Chloride 111 mmol/L (98-107); Cholesterol 112 mg/dl (< 200 Desired); Estimated GFR 58; Glucose 143 mg/dL (83-110); HDL Cholesterol 24 mg/dL (>60 Neg Risk); LDL Cholesterol, Calculated 58 mg/dL; Potassium 3.5 mmol/L (3.5-5.1); Sodium 140 mmol/L (136-145); Triglycerides 152 mg/dL (Less than 150)
[2023-01-17] MEDS: Mometasone 200 MCG/PUFF (1 INHALER) INH SCH (07:22)
[2023-01-17] MEDS ORDERED: Lorazepam 2 MG/ML VIAL SLOW IVP SCH (08:16)
[2023-01-17] MEDS: Carvedilol 25 MG TAB PO SCH (08:20)
[2023-01-17] MEDS: Ferrous Sulfate 325 MG TAB PO SCH (08:21)
[2023-01-17] MEDS: Pramipexole Di-HCl 1 MG TAB PO SCH ×2 (08:21→15:11)
[2023-01-17] MEDS ORDERED: Losartan 25 MG TAB PO SCH (09:00)
[2023-01-17] MEDS ORDERED: Empagliflozin 25 MG TAB PO SCH (09:00)
[2023-01-17] MEDS ORDERED: Aspirin 325 MG TAB PO SCH (09:00)
[2023-01-17] MEDS ORDERED: Furosemide 40 MG TAB PO SCH (09:00)
[2023-01-17] MEDS ORDERED: Clopidogrel Bisulfate 75 MG TAB PO SCH (09:00)
[2023-01-17] MEDS ORDERED: Aspirin 81 mg Enteric Coated Tablet PO SCH (09:00)
[2023-01-17] MEDS ORDERED: Alogliptin 6.25 MG TAB PO SCH (09:00)
[2023-01-17] MEDS ORDERED: Tamsulosin HCl 0.4 MG CAP PO SCH (09:00)
[2023-01-17 11:22] VITALS: BP 153/74; TEMP 97.7
== END 2023-01-17 16:10 | disposition home or self-care (01) ==
LOC: ERS 14:26 → 2SW 18:51
PROVIDERS: ADMIT Internal Medicine Geriatric Medicine; ATTEND Internal Medicine
DX: M25.511 Pain in right shoulder (principal); R77.8 Other specified abnormalities of plasma proteins; I50.30 Unspecified diastolic (congestive) heart failure; J44.9 Chronic obstructive pulmonary disease, unspecified; E78.5 Hyperlipidemia, unspecified; E11.22 Type 2 diabetes mellitus with diabetic chronic kidney disease; D64.9 Anemia, unspecified; I11.0 Hypertensive heart disease with heart failure; Z88.8 Allergy status to other drugs, medicaments and biological substances; Z91.013 Allergy to seafood; Z79.02 Long term (current) use of antithrombotics/antiplatelets; Z79.82 Long term (current) use of aspirin; Z79.899 Other long term (current) drug therapy; Z86.73 Personal history of transient ischemic attack (TIA), and cerebral infarction without residual deficits
CPT/HCPCS: 36415; 36416; 71045; 80048; 80053; 80061; 82553; 83036; 83690; 84484; 85025; 93005; 94760; 96372; 96374; G0378; J1650; J1885; J2060

== ENCOUNTER 2025-01-14 08:26 | Observation (INO) | payer OTHER, MEDICARE ==
[2025-01-14 08:48] LABS: #Basophils 0.05 10x3/uL (0.0-0.2); #Eosinophils 0.35 10x3/uL (0.0-0.7); #Monocytes 0.87 10x3/uL (0.11-0.59); #Neutrophils 5.69 10x3/uL (1.40-6.50); %Basophils 0.6 % (0.0-1.0); %Eosinophils 3.9 % (0.0-10.0); %Lymphocytes 21.4 % (21.0-51.0); %Monocytes 9.8 % (0.0-10.0); %Neutrophils 63.7 % (42.0-75.0); Hematocrit 39.1 % (42.0-52.0); Hemoglobin 12.0 g/dL (14.0-18.0); Mean Corpuscular Hemoglobin 24.1 pg (27.0-31.0); Mean Corpuscular Volume 78.7 fL (78.0-98.0); Platelet Count 206 10x3/uL (130-400); Red Blood Cell (RBC) Count 4.97 mill/uL (4.70-6.10); White Blood Cell (WBC) Count 8.92 10x3/uL (4.8-10.8)
[2025-01-14 09:01] LABS: INR-International Normal Ratio 1.1; Prothrombin Time 14.1 sec (12.0-14.7)
[2025-01-14 09:02] LABS: PTT 47.9 sec (22.9-36.1)
[2025-01-14 09:05] LABS: ALT (SGPT) 32 U/L (Less than 45); AST (SGOT) 29 U/L (11-34); Albumin 3.8 g/dL (3.1-4.5); Alkaline Phosphatase 71 U/L (40-110); Anion Gap 15 mmol/L (10-20); BUN (Urea Nitrogen) 39 mg/dL (8.4-25.7); Bilirubin, Total 0.7 mg/dL (0.3-1.2); Calc. Creatinine Clearance 0 mL/min (70-130); Calcium 8.5 mg/dL (7.8-10.44); Carbon Dioxide 22 mmol/L (23-31); Chloride 110 mmol/L (98-107); Globulin 3.0 g/dL (2.4-3.5); Glucose 153 mg/dL (83-110); Lipase 22 U/L (8-78); Potassium 4.2 mmol/L (3.5-5.1); Sodium 143 mmol/L (136-145)
[2025-01-14 09:09] LABS: Troponin I 0.026 ng/mL (< 0.028)
[2025-01-14] MEDS ORDERED: Bacitracin 1 PK ONE (10:32)
[2025-01-14] MEDS ORDERED: Ketorolac Tromethamine 30 MG (1 mL) VIAL ONE (10:32)
[2025-01-14] MEDS ORDERED: Ondansetron PF 4 MG/2 ML Vial ONE (10:32)
[2025-01-14 10:35] LABS: Actual Bicarbonate (HCO3v) 22.4 mEq/L (22-28); Analyzer IN Cardio ER; Base Excess -3.5 mEq/L (-2.0 to +3.0); Calcium, Ionized (venous) 1.14 mmol/L (1.16-1.32); Chloride (VBG) 105 mmol/L (98-106); Hematocrit-VBG 35 % (42.0-52.0); Hemoglobin (Hb) 12.0 g/dL (12.6-17.4); Potassium (VBG) 3.77 mmol/L (3.70-5.30); Sodium 141 mmol/L (133-146)
[2025-01-14] MEDS ORDERED: Glucagon 1 MG/ML KIT IM PRN (10:45)
[2025-01-14] MEDS ORDERED: Acetaminophen 325 MG TAB PO PRN (10:45)
[2025-01-14] MEDS ORDERED: Dextrose 50% Abboject 50 ML SYRINGE SLOW IVP PRN (10:45)
[2025-01-14] MEDS ORDERED: Ondansetron PF 4 MG/2 ML Vial IVP PRN (10:45)
[2025-01-14 11:04] LABS: Troponin I 0.012 ng/mL (< 0.028)
[2025-01-14] MEDS ORDERED: Iopamidol-370 76% 500 ML MDV (1 ML CHARGE) ONE (14:17)
[2025-01-14 14:36] VITALS: BMI 32.4
[2025-01-14] MEDS: hydrALAZINE 20 MG/ML VIAL SLOW IVP PRN (14:43)
[2025-01-14] MEDS: HYDROcodone/Acetaminophen 5/325 mg Tablet PO PRN (14:43)
[2025-01-14] MEDS: Methocarbamol 500 MG TAB PO PRN (14:44)
[2025-01-14] MEDS: glipiZIDE 10 MG TAB PO SCH (20:04)
[2025-01-14] MEDS: Carvedilol 25 MG TAB PO SCH (20:04)
[2025-01-14] MEDS: NIFEdipine XL 60 MG ER.TAB PO SCH (20:04)
[2025-01-14] MEDS: Transdermal Patch Removal LIDOCAINE TOP SCH (20:28)
[2025-01-15 04:39] LABS: #Basophils 0.03 10x3/uL (0.0-0.2); #Eosinophils 0.32 10x3/uL (0.0-0.7); #Monocytes 1.07 10x3/uL (0.11-0.59); #Neutrophils 7.27 10x3/uL (1.40-6.50); %Basophils 0.3 % (0.0-1.0); %Eosinophils 3.2 % (0.0-10.0); %Lymphocytes 13.7 % (21.0-51.0); %Monocytes 10.6 % (0.0-10.0); %Neutrophils 71.8 % (42.0-75.0); Hematocrit 37.5 % (42.0-52.0); Hemoglobin 11.0 g/dL (14.0-18.0); Mean Corpuscular Hemoglobin 23.8 pg (27.0-31.0); Mean Corpuscular Volume 81.2 fL (78.0-98.0); Platelet Count 196 10x3/uL (130-400); Red Blood Cell (RBC) Count 4.62 mill/uL (4.70-6.10); White Blood Cell (WBC) Count 10.12 10x3/uL (4.8-10.8)
[2025-01-15 05:27] LABS: Anion Gap 12 mmol/L (10-20); BUN (Urea Nitrogen) 30 mg/dL (8.4-25.7); Calc. Creatinine Clearance 61 mL/min (70-130); Calcium 8.4 mg/dL (7.8-10.44); Carbon Dioxide 26 mmol/L (23-31); Chloride 108 mmol/L (98-107); Glucose 71 mg/dL (83-110); Potassium 4.2 mmol/L (3.5-5.1); Sodium 142 mmol/L (136-145)
[2025-01-15] MEDS: Furosemide 40 MG (4 mL) VIAL SLOW IVP SCH (05:55)
[2025-01-15] MEDS: Losartan 25 MG TAB PO SCH (10:27)
[2025-01-15 10:32] VITALS: TEMP 98.6
[2025-01-15] MEDS ORDERED: Iopamidol 370 76% 100 ML VIAL ONE (14:36)
[2025-01-15 16:51] VITALS: BP 162/74
== END 2025-01-15 18:56 ==
LOC: ERS 08:26 → OBS 10:51
PROVIDERS: ADMIT Surgery; ATTEND Surgery
DX: S20.219A Contusion of unspecified front wall of thorax, initial encounter (principal); R55 Syncope and collapse; J44.9 Chronic obstructive pulmonary disease, unspecified; G47.33 Obstructive sleep apnea (adult) (pediatric); I25.10 Atherosclerotic heart disease of native coronary artery without angina pectoris; E11.22 Type 2 diabetes mellitus with diabetic chronic kidney disease; I12.9 Hypertensive chronic kidney disease with stage 1 through stage 4 chronic kidney disease, or unspecified chronic kidney disease; N18.32 Chronic kidney disease, stage 3b; E78.5 Hyperlipidemia, unspecified; Z87.891 Personal history of nicotine dependence; Z91.013 Allergy to seafood; Z88.8 Allergy status to other drugs, medicaments and biological substances; Z79.82 Long term (current) use of aspirin; Z79.899 Other long term (current) drug therapy; V89.2XXA Person injured in unspecified motor-vehicle accident, traffic, initial encounter
CPT/HCPCS: 70450; 71260; 71275; 72125; 73080; 73130 ×2; 73552; 73564; 74174; 74177; 80048; 80053; 82805; 82962 ×2; 83690; 84484 ×2; 85025 ×2; 85610; 85730; 86850; 86900; 86901; 93005; 93880; 96361; 96374; 96375 ×3; 96376; 97116; 99285; G0378 ×3; G0390; J0360; J1885; J1940; J2270; J2405; Q9967 ×2; 36415; 36416

== ENCOUNTER 2025-04-11 10:01 | Emergency (ER) | payer MEDICARE ==
[2025-04-11 10:30] LABS: #Basophils 0.03 10x3/uL (0.0-0.2); #Eosinophils 0.60 10x3/uL (0.0-0.7); #Monocytes 0.78 10x3/uL (0.11-0.59); #Neutrophils 5.51 10x3/uL (1.40-6.50); %Basophils 0.4 % (0.0-1.0); %Eosinophils 7.3 % (0.0-10.0); %Lymphocytes 15.7 % (21.0-51.0); %Monocytes 9.5 % (0.0-10.0); %Neutrophils 66.7 % (42.0-75.0); Hematocrit 37.8 % (42.0-52.0); Hemoglobin 10.9 g/dL (14.0-18.0); Mean Corpuscular Hemoglobin 22.5 pg (27.0-31.0); Mean Corpuscular Volume 77.9 fL (78.0-98.0); Platelet Count 214 10x3/uL (130-400); Red Blood Cell (RBC) Count 4.85 mill/uL (4.70-6.10); White Blood Cell (WBC) Count 8.24 10x3/uL (4.8-10.8)
[2025-04-11 10:51] LABS: ALT (SGPT) 18 U/L (Less than 45); AST (SGOT) 19 U/L (11-34); Albumin 3.5 g/dL (3.1-4.5); Alkaline Phosphatase 83 U/L (40-110); Anion Gap 11 mmol/L (10-20); BUN (Urea Nitrogen) 40 mg/dL (8.4-25.7); Bilirubin, Total 0.5 mg/dL (0.3-1.2); Calc. Creatinine Clearance 0 mL/min (70-130); Calcium 8.7 mg/dL (7.8-10.44); Carbon Dioxide 26 mmol/L (23-31); Chloride 109 mmol/L (98-107); Globulin 3.5 g/dL (2.4-3.5); Glucose 105 mg/dL (83-110); Potassium 4.4 mmol/L (3.5-5.1); Sodium 142 mmol/L (136-145)
[2025-04-11 11:14] LABS: Anisocytosis SLIGHT = 6-15 cells HPF (0-5); Microcytosis SLIGHT = 6-15 cells HPF (0-5); Platelet Adequacy Comment Platelets Normal; Polychromasia SLIGHT = 2-3 cells HPF (0-2)
[2025-04-11] MEDS ORDERED: Acetaminophen 500 MG TAB ONE (12:10)
== END 2025-04-11 15:54 | disposition home or self-care (01) ==
LOC: ERS 10:01 → SUATTDRO 10:01 → ERS 15:54
PROVIDERS: ATTEND Family Medicine
DX: R60.9 Edema, unspecified (principal); R79.89 Other specified abnormal findings of blood chemistry; E11.9 Type 2 diabetes mellitus without complications; J44.9 Chronic obstructive pulmonary disease, unspecified; I11.0 Hypertensive heart disease with heart failure; I50.9 Heart failure, unspecified; Z79.82 Long term (current) use of aspirin; Z79.899 Other long term (current) drug therapy
CPT/HCPCS: 71045; 74176; 80053; 83605; 83880; 85025; J2270; 96374

== ENCOUNTER 2025-04-28 02:06 | Inpatient (IN) | payer MEDICARE, OTHER, SELFPAY ==
[2025-04-28] MEDS ORDERED: Acetaminophen 500 MG TAB ONE (02:26)
[2025-04-28] MEDS ORDERED: Albuterol 2.5 MG (3 mL) NEB ONE (02:27)
[2025-04-28 02:33] LABS: #Basophils 0.04 10x3/uL (0.0-0.2); #Eosinophils 0.56 10x3/uL (0.0-0.7); #Monocytes 1.22 10x3/uL (0.11-0.59); #Neutrophils 8.20 10x3/uL (1.40-6.50); %Basophils 0.4 % (0.0-1.0); %Eosinophils 5.0 % (0.0-10.0); %Lymphocytes 10.0 % (21.0-51.0); %Monocytes 10.9 % (0.0-10.0); %Neutrophils 73.3 % (42.0-75.0); Hematocrit 34.6 % (42.0-52.0); Hemoglobin 10.0 g/dL (14.0-18.0); Mean Corpuscular Hemoglobin 22.6 pg (27.0-31.0); Mean Corpuscular Volume 78.1 fL (78.0-98.0); Platelet Count 215 10x3/uL (130-400); Red Blood Cell (RBC) Count 4.43 mill/uL (4.70-6.10); White Blood Cell (WBC) Count 11.18 10x3/uL (4.8-10.8)
[2025-04-28 02:48] LABS: ALT (SGPT) 22 U/L (Less than 45); AST (SGOT) 27 U/L (11-34); Albumin 3.5 g/dL (3.1-4.5); Alkaline Phosphatase 71 U/L (40-110); Anion Gap 13 mmol/L (10-20); BUN (Urea Nitrogen) 42 mg/dL (8.4-25.7); Bilirubin, Total 0.7 mg/dL (0.3-1.2); Calc. Creatinine Clearance 0 mL/min (70-130); Calcium 8.6 mg/dL (7.8-10.44); Carbon Dioxide 24 mmol/L (23-31); Chloride 109 mmol/L (98-107); Globulin 3.4 g/dL (2.4-3.5); Glucose 135 mg/dL (83-110); Potassium 4.7 mmol/L (3.5-5.1); Sodium 141 mmol/L (136-145)
[2025-04-28 03:38] LABS: Actual Bicarbonate (HCO3v) 23.9 mEq/L (22-28); Analyzer IN Cardio ER; Base Excess -2.5 mEq/L (-2.0 to +3.0); Calcium, Ionized (venous) 1.13 mmol/L (1.16-1.32); Chloride (VBG) 106 mmol/L (98-106); Hematocrit-VBG 33 % (42.0-52.0); Hemoglobin (Hb) 11.1 g/dL (12.6-17.4); Potassium (VBG) 4.10 mmol/L (3.70-5.30); Sodium 139 mmol/L (133-146)
[2025-04-28] MEDS ORDERED: Furosemide 40 MG (4 mL) VIAL ONE (04:39)
[2025-04-28] MEDS ORDERED: cefTRIAXone (ROCEPHIN) 2 GM VIAL ONE (04:39)
[2025-04-28] MEDS ORDERED: Glucagon 1 MG/ML KIT IM PRN (04:44)
[2025-04-28] MEDS ORDERED: Dextrose 50% Abboject 50 ML SYRINGE SLOW IVP PRN (04:44)
[2025-04-28] MEDS ORDERED: Azithromycin 500 MG VIAL ONE (05:24)
[2025-04-28] MEDS: Furosemide 40 MG (4 mL) VIAL SLOW IVP SCH (05:37)
[2025-04-28] MEDS ORDERED: Carvedilol 25 MG TAB ONE (08:07)
[2025-04-28] MEDS ORDERED: Aspirin Chewable 81 MG TAB ONE (08:07)
[2025-04-28] MEDS: Aspirin Chewable 81 MG TAB PO SCH (08:17)
[2025-04-28] MEDS: Carvedilol 25 MG TAB PO SCH (08:17)
[2025-04-28] MEDS: NIFEdipine XL 60 MG ER.TAB PO SCH (08:17)
[2025-04-28 10:14] VITALS: BMI 33.0
[2025-04-28] MEDS ORDERED: Iopamidol 370 76% 100 ML VIAL ONE (11:05)
[2025-04-28] MEDS: Acetaminophen 325 MG TAB PO PRN (21:18)
[2025-04-28] MEDS: QUEtiapine 25 MG TAB PO SCH (21:18)
[2025-04-28] MEDS: Methocarbamol 500 MG TAB PO PRN (21:18)
[2025-04-29] MEDS: cefTRIAXone\\ROCEPHIN 1 GM in Sodium Chloride 0.9% 100 ML IVPB SCH (06:15)
[2025-04-29 06:25] LABS: #Basophils Less than 0.03 10x3/uL (0.0-0.2); #Eosinophils Less than 0.03 10x3/uL (0.0-0.7); #Monocytes 0.48 10x3/uL (0.11-0.59); #Neutrophils 8.07 10x3/uL (1.40-6.50); %Basophils 0.0 % (0.0-1.0); %Eosinophils 0.0 % (0.0-10.0); %Lymphocytes 9.1 % (21.0-51.0); %Monocytes 5.1 % (0.0-10.0); %Neutrophils 84.9 % (42.0-75.0); Hematocrit 34.4 % (42.0-52.0); Hemoglobin 10.0 g/dL (14.0-18.0); Mean Corpuscular Hemoglobin 22.4 pg (27.0-31.0); Mean Corpuscular Volume 77.0 fL (78.0-98.0); Platelet Count 231 10x3/uL (130-400); Red Blood Cell (RBC) Count 4.47 mill/uL (4.70-6.10); White Blood Cell (WBC) Count 9.50 10x3/uL (4.8-10.8)
[2025-04-29 06:47] LABS: ALT (SGPT) 19 U/L (Less than 45); AST (SGOT) 19 U/L (11-34); Albumin 3.3 g/dL (3.1-4.5); Alkaline Phosphatase 68 U/L (40-110); Anion Gap 12 mmol/L (10-20); BUN (Urea Nitrogen) 47 mg/dL (8.4-25.7); Bilirubin, Total 0.4 mg/dL (0.3-1.2); Calc. Creatinine Clearance 56 mL/min (70-130); Calcium 8.8 mg/dL (7.8-10.44); Carbon Dioxide 25 mmol/L (23-31); Chloride 107 mmol/L (98-107); Globulin 3.7 g/dL (2.4-3.5); Glucose 181 mg/dL (83-110); Magnesium 2.4 mg/dL (1.6-2.6); Potassium 4.2 mmol/L (3.5-5.1); Sodium 140 mmol/L (136-145)
[2025-04-29] MEDS: Furosemide 100 MG (10 mL) VIAL SLOW IVP SCH (14:09)
[2025-04-30 05:27] LABS: Hematocrit 35.7 % (42.0-52.0); Hemoglobin 10.3 g/dL (14.0-18.0); Mean Corpuscular Hemoglobin 22.2 pg (27.0-31.0); Mean Corpuscular Volume 77.1 fL (78.0-98.0); Platelet Count 252 10x3/uL (130-400); Red Blood Cell (RBC) Count 4.63 mill/uL (4.70-6.10); White Blood Cell (WBC) Count 10.75 10x3/uL (4.8-10.8)
[2025-04-30 05:47] LABS: Anion Gap 16 mmol/L (10-20); BUN (Urea Nitrogen) 55 mg/dL (8.4-25.7); Calc. Creatinine Clearance 55 mL/min (70-130); Calcium 8.9 mg/dL (7.8-10.44); Carbon Dioxide 28 mmol/L (23-31); Chloride 101 mmol/L (98-107); Glucose 151 mg/dL (83-110); Iron 23 ug/dL (65-175); Iron Binding Capacity, Total 261 mcg/dL (261-462); Potassium 3.7 mmol/L (3.5-5.1); Sodium 141 mmol/L (136-145)
[2025-05-01 07:08] LABS: Hematocrit 42.6 % (42.0-52.0); Hemoglobin 12.3 g/dL (14.0-18.0); Mean Corpuscular Hemoglobin 22.0 pg (27.0-31.0); Mean Corpuscular Volume 76.3 fL (78.0-98.0); Platelet Count 300 10x3/uL (130-400); Red Blood Cell (RBC) Count 5.58 mill/uL (4.70-6.10); White Blood Cell (WBC) Count 11.71 10x3/uL (4.8-10.8)
[2025-05-01 07:38] LABS: Anion Gap 17 mmol/L (10-20); BUN (Urea Nitrogen) 61 mg/dL (8.4-25.7); Calc. Creatinine Clearance 47 mL/min (70-130); Calcium 9.1 mg/dL (7.8-10.44); Carbon Dioxide 32 mmol/L (23-31); Chloride 95 mmol/L (98-107); Glucose 150 mg/dL (83-110); Potassium 3.6 mmol/L (3.5-5.1); Sodium 140 mmol/L (136-145)
[2025-05-01] MEDS: Ferrous Gluconate 324 MG TAB PO SCH (09:57)
[2025-05-01] MEDS: Losartan 25 MG TAB PO SCH (09:57)
[2025-05-01 15:11] VITALS: BP 122/70; TEMP 97.6
[2025-05-02] MEDS ORDERED: Furosemide 40 MG TAB PO SCH (09:00)
== END 2025-05-01 16:43 | disposition home or self-care (01) | DRG 193 ==
LOC: ERS 02:06 → ERHOLD 04:43 → T4-B 10:04
PROVIDERS: ADMIT Student in an Organized Health Care Education/Training Program; ATTEND Internal Medicine
PROC: 3E03329 Introduction of Other Anti-infective into Peripheral Vein, Percutaneous Approach (ICD-10-PCS; principal; 2025-04-28)
PROC: 5A09357 Assistance with Respiratory Ventilation, Less than 24 Consecutive Hours, Continuous Positive Airway Pressure (ICD-10-PCS; 2025-04-28)
DX: J18.9 Pneumonia, unspecified organism (principal); I50.33 Acute on chronic diastolic (congestive) heart failure; J96.01 Acute respiratory failure with hypoxia; I13.0 Hypertensive heart and chronic kidney disease with heart failure and stage 1 through stage 4 chronic kidney disease, or unspecified chronic kidney disease; N17.9 Acute kidney failure, unspecified; J44.1 Chronic obstructive pulmonary disease with (acute) exacerbation; J44.0 Chronic obstructive pulmonary disease with (acute) lower respiratory infection; I87.8 Other specified disorders of veins; D63.1 Anemia in chronic kidney disease; E11.22 Type 2 diabetes mellitus with diabetic chronic kidney disease; N18.30 Chronic kidney disease, stage 3 unspecified; E78.5 Hyperlipidemia, unspecified; G25.81 Restless legs syndrome; Z96.653 Presence of artificial knee joint, bilateral; E11.51 Type 2 diabetes mellitus with diabetic peripheral angiopathy without gangrene; Z86.73 Personal history of transient ischemic attack (TIA), and cerebral infarction without residual deficits; Z98.890 Other specified postprocedural states; Z91.013 Allergy to seafood; Z88.8 Allergy status to other drugs, medicaments and biological substances; Z79.899 Other long term (current) drug therapy; Z79.84 Long term (current) use of oral hypoglycemic drugs; Z79.02 Long term (current) use of antithrombotics/antiplatelets; Z79.82 Long term (current) use of aspirin; Z95.5 Presence of coronary angioplasty implant and graft; I25.10 Atherosclerotic heart disease of native coronary artery without angina pectoris; I87.2 Venous insufficiency (chronic) (peripheral); E66.9 Obesity, unspecified; Z68.29 Body mass index [BMI] 29.0-29.9, adult
CPT/HCPCS: 36415; 36416; 71045; 71275; 80048; 80053; 82728; 82805; 83036; 83540; 83550; 83735; 83880; 84484; 85025; 85027; 87428; 93005; 94640; 94660; 96365; 96367; 96375; J0456; J0696; J1940; J2919; J7611; Q9967